=== PATIENT | female | born 1960 ===

== ENCOUNTER 2017-11-10 05:00 | Day surgery (SDC) | payer OTHER ==
[~2017-11-10 05:00] MED LIST: ATORVASTATIN CA20 MG PO; COLAGENO PO; ELAVIL PO; METOPROLOL SUCC50 MG PO; METOTREXATE PO; MINUS WEIGHT P1 EACH PO; OSTERA TABLET1 EACH PO; PREDNISONE PO; SULFASALAZINE PO; ULTRACET PO; VERAPAMIL ER240 MG PO
== END 2017-11-10 11:45 | disposition home or self-care (01) ==
LOC: CIR.AMB 05:00
DX: M06.841 Other specified rheumatoid arthritis, right hand (principal)

== ENCOUNTER → 2019-01-11 | Day surgery (SDC) | payer OTHER ==
[~2019-01-11] MED LIST changes: +PLAQUENIL PO; +VASOTEC10 MG PO
== END | disposition home or self-care (01) ==
LOC: ADM 01-05 12:45 → CIR.AMB 05:30
DX: M06.032 Rheumatoid arthritis without rheumatoid factor, left wrist (principal)
CPT/HCPCS: 26531; C1776